=== PATIENT | female | born 1985 | race Caucasian/White ===

== ENCOUNTER 2017-04-20 15:27 | Emergency (ER) | payer OTHER ==
--- NOTE | 2017-04-20 17:14 | DIAGNOSTIC IMAGING REPORT ---
PROCEDURE: XR LUMBAR SPINE 2 OR 3 VIEWS INDICATION: TRAUMA/INJURY TECHNIQUE: Three views. COMPARISON: None. FINDINGS: Osseous structures and disc spaces are normal. No evidence of an acute process or fracture. IMPRESSION: 1. Negative lumbar spine.
--- NOTE | 2017-04-20 17:14 | DIAGNOSTIC IMAGING REPORT ---
PROCEDURE: XR KNEE 4 VIEWS - RIGHT INDICATION: TRAUMA/INJURY TECHNIQUE: Four views. COMPARISON: None. FINDINGS: Osseous structures and joint spaces are normal. IMPRESSION: 1. Normal right knee.
--- NOTE | 2017-04-20 17:20 | ED CLINICAL REPORT ---
Clinical Report - Physicians/Mid Levels [facility] [address] [place] [address] 04/20/2017 15:28 [id number] Time Seen: 16:16 Apr 20 2017. Arrived- By private vehicle. Historian- patient. HISTORY OF PRESENT ILLNESS Chief Complaint: FALL. Location of injuries- (low back/ r. knee). The injury occurred 4 days. Fell. Occurred at home. No blow to the head or neck pain. (Patient fell in the shower slipping backwards and onto her right knee4 days prior to arrival. Has been ambulatory, however worsens of her pain to her lower back as well as her right knee. Injury to her right knee. 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 Denies any LOC or neck pain.). REVIEW OF SYSTEMS No hearing loss or chest pain. All systems otherwise negative, except as recorded above. PAST HISTORY Tetanus immunization status is up-to-date. Problems: Ureterolithiasis. UTI - Urinary Tract Infection. Renal Colic. Nephrolithiasis. Endometriosis. Additional Surgeries: Cholecystectomy. . Endoscopy. Laparoscopy. Medications: Flomax Oral 0.4 mg, daily. Omeprazole Oral 40 mg, daily. zofran 4mg po --ran out . Allergies: Amoxicillin.(facial swelling, rash) Codeine. (esophageal spasms) Diphenhydramine. Morphine Sulfate. Naproxen. Penicillins. Sulfa Drugs. SOCIAL HISTORY Smoker- current status unknown. Alcohol use. History of drug use. PHYSICAL EXAM Appearance: Alert. No acute distress. ENT: No dental injury. No malocclusion. Neck: Painless ROM. Non-tender. Posterior neck: No tenderness. CVS: Heart sounds normal. Pulses normal. No JVD. Respiratory: Breath sounds normal. Abdomen: No visible injury. No mass. No abdominal tenderness, mass present or organomegaly. Back: Tenderness in the right lower and left lower lumbar area. Skin: Skin intact. Skin warm. Extremities: Normal inspection. Pelvis stable. Right knee: mild tenderness located in the patella. No swelling, laceration, puncture wound, foreign body or deformity. Neuro: Oriented X 3. LABS, X-RAYS, AND EKG LS-Spine X-rays: (IMPRESSION: 1. Negative lumbar spine. Electronically Final signed by:Yousif Vail MD 04/20/2017 5:15:17 PM). Rt Knee X-ray: (IMPRESSION: 1. Normal right knee. Electronically Final signed by:Yousif Vail MD 04/20/2017 5:14:38 PM). PROGRESS AND PROCEDURES PROCEDURES (R. knee immoblizer, ns intact post application, crutches.). Course of Care: patient with right-sided lumbar tenderness, with no signs of acute fracture. Patient is with no signs of injury to her head or neck, abdomen or chest. She is able to handle it on the right knee, there are no obvious signs of fracture. Osseous structures are intact. No signs of effusion, laceration or abrasion. Patient is urged to follow-up with orthopedics as needed. Knee immobilizer placed , as well as crutches. 04/20/2017 15:52 BP: 163/87. HR: 81. RR: 20. O2 saturation: 98%. Temp: 98.6 F. Pain level now: 6/10. Patient is stable. Symptoms better. Patient/family counseled. Disposition: Discharged. Condition: good. CLINICAL IMPRESSION Contusion to the right knee. INSTRUCTIONS Apply ice. Wear knee immobilizer. Elevate affected areas above chest level. You may walk and bear weight as tolerated. Prescription Medications: Ultram 50 mg: take 1 orally every 6 hours for 5 days. Dispense twenty (20). No refills. Substitution is permissible. OTC Medications: Acetaminophen ER 650 mg (available over the counter): take 1 orally every 6 hours for 5 days, as needed for pain. Dispense twenty (20). No refill. [facility] with: [facility], , [address] [place], [address] Follow up. Call for the next available appointment. (Electronically signed by Nellie Pham P.A.-C 04/20/2017 17:47)
--- NOTE | 2017-04-20 17:20 | ED NURSING NOTES ---
Clinical Report - Nurses [facility] [address] [place] [address] 04/20/2017 15:28 Patient: TEODORA PLAZA TRIAGE Triage time 1550. Acuity: LEVEL 4. Chief Complaint: FALL (pt states she fell 4 days ago in shower and fell with fully extended legs. c/o bilateral knee pain, right worse than left. also has low back pain from fall). DENISSE COMA SCORE: Denisse Coma Scale: 15- eyes open spontaneously (4); best verbal response- oriented x 4 (5); best motor response- obeys commands (6). --16:03 Marya Kim R.N. 15:52 04/20/17. BP: 163/87. HR: 81. RR: 20. O2 saturation: 98%. Temp: 98.6 F. Pain level now: 04/16. --16:03 Marya Kim R.N. Weight: 158.7 kg stated. Height/Length: 69 inches Per Patient. BMI: 51.7. --15:53 Marya Kim R.N. Medications Flomax Oral 0.4 mg, daily. Omeprazole Oral 40 mg, daily. zofran 4mg po --ran out . --15:55 Marya Kim R.N. Allergies Amoxicillin.(facial swelling, rash) Codeine. (esophageal spasms) Diphenhydramine. Morphine Sulfate. Naproxen. Penicillins. Sulfa Drugs. --15:55 Marya Kim R.N. History Arrived by private vehicle. Historian: patient. Accompanied by (dropped off - will take hope link home). Primary physician (kelly). Location of injuries: lower back, right knee and left knee. She has had extremity pain (both knees). She has had back pain. Limited ROM present. No loss of consciousness. PAST MEDICAL HX: Last normal menstrual period- cervical oblation- spots only. SOCIAL HX: Light tobacco smoker (cigarette)- less than 1/2 a pack per day. Occasional alcohol use. History of drug use: marijuana. --16:03 Marya Kim R.N. PROBLEMS: Ureterolithiasis. UTI - Urinary Tract Infection. Renal Colic. Nephrolithiasis. Endometriosis. --15:56 Marya Kim R.N. ADDITIONAL SURGERIES: Cholecystectomy. . Endoscopy. Laparoscopy. --15:56 Marya Kim R.N. Interventions ID band on patient. To treatment room. --16:03 Marya Kim R.N. PHYSICAL ASSESSMENT 15:50. Ambulatory to room. Patient gowned. GENERAL / NEURO / PSYCH: Alert. Oriented X 4. Appears in pain. RESPIRATORY: Respirations not labored. EXTREMITIES: Limited ROM present. Limping gait. Right knee: tenderness and swelling. Left knee: tenderness. SKIN: Skin is warm and dry. BACK: Back: tenderness. --15:59 Marya Kim R.N. NURSING PROGRESS NOTES 15:50. Cold pack applied. Patient gowned. Reassurance given. Patient identifiers checked. Call light placed in reach. Side rails up. Bed placed in lowest position. Patient ready for evaluation- chart flagged. --15:58 Marya Kim R.N. late entry -17:15 pt back from x-ray by stretcher. --21:49 Marya Kim R.N. 17:30. Immobilizer applied to right knee by plant and maintenance technician; distal pulses intact, sensation intact and motor function within normal limits (done by Roselia Butler, zyglo technician). Patient fit with new crutches (doneby Roselia Butler, senior technical project manager). --21:48 Marya Kim R.N. DISPOSITION / DISCHARGE 17:40. Condition at departure: improved and stable. No learning barriers present. Discharge instructions provided and reviewed with the patient. Reviewed crutch walking and splint care instructions (ice). Reviewed referral to an orthopedic surgeon. Patient verbalized understanding. Written instructions provided in Northern Irish. The patient was discharged home and unaccompanied at time of discharge. She left the Emergency Department on crutches and via (Virtual 3-D Display for Smartphones). --21:47 Marya Kim R.N. 17:40 04/20/17. BP: 150/86. HR: 78. RR: 18. O2 saturation: 99%. Temp: deferred. Pain level now: 03/16. --21:47 Marya Kim R.N. Locked/Released at 04/20/2017 21:50 by Marya Kim R.N.
--- NOTE | 2017-04-20 17:20 | ED ORDER SUMMARY ---
..... Patient: TEODORA PLAZA N OrderSheet [facility] VisitID: [id number] [address] [place] [address] 31y, F Registration Date/Time: 04/20/2017 ORDER SHEET Weight: 158.7 kg (stated) Allergies: Amoxicillin, Codeine, Diphenhydramine, Morphine Sulfate, Naproxen, Penicillins, Sulfa Drugs GENERAL ORDERS: Knee 4V Right Urgent (16:08 04/20/2017 EKoroleva P.A.-C) (Ack 16:12 LNations ER Tech1) (17:05 PWeiler ER Tech1) Lumbar Spine 2 or 3V Urgent (16:08 04/20/2017 EKoroleva P.A.-C) (Ack 16:12 LNations ER Tech1) (17:05 PWeiler ER Tech1) Knee Immobilizer (17:18 04/20/2017 EKoroleva P.A.-C) (17:42 DDean R.N.) Crutches (17:26 04/20/2017 EKoroleva P.A.-C) (17:42 DDean R.N.) MEDICATION ORDERS: IV FLUIDS: ORDER SHEET NOTES: [Electronically signed by Nellie PhamALizzy-C (17:47 04/20/2017)] [Electronically signed by Marya Kim R.N. (21:50 04/20/2017)] [Electronically locked/signed by Marya Kim R.N. (21:50 04/20/2017)]
--- NOTE | 2017-04-20 17:20 | ED NURSING NOTES ---
Clinical Report - Nurses [facility] [address] [place] [address] 04/20/2017 15:28 Patient: TEODORA PLAZA TRIAGE Triage time 1550. Acuity: LEVEL 4. Chief Complaint: FALL (pt states she fell 4 days ago in shower and fell with fully extended legs. c/o bilateral knee pain, right worse than left. also has low back pain from fall). DENISSE COMA SCORE: Denisse Coma Scale: 15- eyes open spontaneously (4); best verbal response- oriented x 4 (5); best motor response- obeys commands (6). --16:03 Marya Kim R.N. 15:52 04/20/17. BP: 163/87. HR: 81. RR: 20. O2 saturation: 98%. Temp: 98.6 F. Pain level now: 04/16. --16:03 Marya Kim R.N. Weight: 158.7 kg stated. Height/Length: 69 inches Per Patient. BMI: 51.7. --15:53 Marya Kim R.N. Medications Flomax Oral 0.4 mg, daily. Omeprazole Oral 40 mg, daily. zofran 4mg po --ran out . --15:55 Marya Kim R.N. Allergies Amoxicillin.(facial swelling, rash) Codeine. (esophageal spasms) Diphenhydramine. Morphine Sulfate. Naproxen. Penicillins. Sulfa Drugs. --15:55 Marya Kim R.N. History Arrived by private vehicle. Historian: patient. Accompanied by (dropped off - will take hope link home). Primary physician (kelly). Location of injuries: lower back, right knee and left knee. She has had extremity pain (both knees). She has had back pain. Limited ROM present. No loss of consciousness. PAST MEDICAL HX: Last normal menstrual period- cervical oblation- spots only. SOCIAL HX: Light tobacco smoker (cigarette)- less than 1/2 a pack per day. Occasional alcohol use. History of drug use: marijuana. --16:03 Marya Kim R.N. PROBLEMS: Ureterolithiasis. UTI - Urinary Tract Infection. Renal Colic. Nephrolithiasis. Endometriosis. --15:56 Marya Kim R.N. ADDITIONAL SURGERIES: Cholecystectomy. . Endoscopy. Laparoscopy. --15:56 Marya Kim R.N. Interventions ID band on patient. To treatment room. --16:03 Marya Kim R.N. PHYSICAL ASSESSMENT 15:50. Ambulatory to room. Patient gowned. GENERAL / NEURO / PSYCH: Alert. Oriented X 4. Appears in pain. RESPIRATORY: Respirations not labored. EXTREMITIES: Limited ROM present. Limping gait. Right knee: tenderness and swelling. Left knee: tenderness. SKIN: Skin is warm and dry. BACK: Back: tenderness. --15:59 Marya Kim R.N. NURSING PROGRESS NOTES 15:50. Cold pack applied. Patient gowned. Reassurance given. Patient identifiers checked. Call light placed in reach. Side rails up. Bed placed in lowest position. Patient ready for evaluation- chart flagged. --15:58 Marya Kim R.N. late entry -17:15 pt back from x-ray by stretcher. --21:49 Marya Kim R.N. 17:30. Immobilizer applied to right knee by instructional media services technician; distal pulses intact, sensation intact and motor function within normal limits (done by Roselia Butler, technical aid). Patient fit with new crutches (doneby Roselia Butler, invas tech). --21:48 Marya Kim R.N. DISPOSITION / DISCHARGE 17:40. Condition at departure: improved and stable. No learning barriers present. Discharge instructions provided and reviewed with the patient. Reviewed crutch walking and splint care instructions (ice). Reviewed referral to an orthopedic surgeon. Patient verbalized understanding. Written instructions provided in Yemeni. The patient was discharged home and unaccompanied at time of discharge. She left the Emergency Department on crutches and via ([employer]). --21:47 Marya Kim R.N. 17:40 04/20/17. BP: 150/86. HR: 78. RR: 18. O2 saturation: 99%. Temp: deferred. Pain level now: 03/16. --21:47 Marya Kim R.N. Locked/Released at 04/20/2017 21:50 by Marya Kim R.N.
--- NOTE | 2017-04-20 17:20 | ED CLINICAL REPORT ---
Clinical Report - Physicians/Mid Levels [facility] [address] [place] [address] 04/20/2017 15:28 [facility] PLAZA [id number] Time Seen: 16:16 Apr 20 2017. Arrived- By private vehicle. Historian- patient. HISTORY OF PRESENT ILLNESS Chief Complaint: FALL. Location of injuries- (low back/ r. knee). The injury occurred 4 days. Fell. Occurred at home. No blow to the head or neck pain. (Patient fell in the shower slipping backwards and onto her right knee4 days prior to arrival. Has been ambulatory, however worsens of her pain to her lower back as well as her right knee. Injury to her right knee. 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 Denies any LOC or neck pain.). REVIEW OF SYSTEMS No hearing loss or chest pain. All systems otherwise negative, except as recorded above. PAST HISTORY Tetanus immunization status is up-to-date. Problems: Ureterolithiasis. UTI - Urinary Tract Infection. Renal Colic. Nephrolithiasis. Endometriosis. Additional Surgeries: Cholecystectomy. . Endoscopy. Laparoscopy. Medications: Flomax Oral 0.4 mg, daily. Omeprazole Oral 40 mg, daily. zofran 4mg po --ran out . Allergies: Amoxicillin.(facial swelling, rash) Codeine. (esophageal spasms) Diphenhydramine. Morphine Sulfate. Naproxen. Penicillins. Sulfa Drugs. SOCIAL HISTORY Smoker- current status unknown. Alcohol use. History of drug use. PHYSICAL EXAM Appearance: Alert. No acute distress. ENT: No dental injury. No malocclusion. Neck: Painless ROM. Non-tender. Posterior neck: No tenderness. CVS: Heart sounds normal. Pulses normal. No JVD. Respiratory: Breath sounds normal. Abdomen: No visible injury. No mass. No abdominal tenderness, mass present or organomegaly. Back: Tenderness in the right lower and left lower lumbar area. Skin: Skin intact. Skin warm. Extremities: Normal inspection. Pelvis stable. Right knee: mild tenderness located in the patella. No swelling, laceration, puncture wound, foreign body or deformity. Neuro: Oriented X 3. LABS, X-RAYS, AND EKG LS-Spine X-rays: (IMPRESSION: 1. Negative lumbar spine. Electronically Final signed by:Yousif Vail MD 04/20/2017 5:15:17 PM). Rt Knee X-ray: (IMPRESSION: 1. Normal right knee. Electronically Final signed by:Yousif Vail MD 04/20/2017 5:14:38 PM). PROGRESS AND PROCEDURES PROCEDURES (R. knee immoblizer, ns intact post application, crutches.). Course of Care: patient with right-sided lumbar tenderness, with no signs of acute fracture. Patient is with no signs of injury to her head or neck, abdomen or chest. She is able to handle it on the right knee, there are no obvious signs of fracture. Osseous structures are intact. No signs of effusion, laceration or abrasion. Patient is urged to follow-up with orthopedics as needed. Knee immobilizer placed , as well as crutches. 04/20/2017 15:52 BP: 163/87. HR: 81. RR: 20. O2 saturation: 98%. Temp: 98.6 F. Pain level now: 6/10. Patient is stable. Symptoms better. Patient/family counseled. Disposition: Discharged. Condition: good. CLINICAL IMPRESSION Contusion to the right knee. INSTRUCTIONS Apply ice. Wear knee immobilizer. Elevate affected areas above chest level. You may walk and bear weight as tolerated. Prescription Medications: Ultram 50 mg: take 1 orally every 6 hours for 5 days. Dispense twenty (20). No refills. Substitution is permissible. OTC Medications: Acetaminophen ER 650 mg (available over the counter): take 1 orally every 6 hours for 5 days, as needed for pain. Dispense twenty (20). No refill. [facility] with: [facility], , [address] [place], [address] Follow up. Call for the next available appointment. (Electronically signed by Nellie Pham P.A.-C 04/20/2017 17:47)
--- NOTE | 2017-04-20 17:20 | ED ORDER SUMMARY ---
..... Patient: TEODORA PLAZA N OrderSheet [facility] VisitID: [id number] [address] [place] [address] 31y, F Registration Date/Time: 04/20/2017 ORDER SHEET Weight: 158.7 kg (stated) Allergies: Amoxicillin, Codeine, Diphenhydramine, Morphine Sulfate, Naproxen, Penicillins, Sulfa Drugs GENERAL ORDERS: Knee 4V Right Urgent (16:08 04/20/2017 EKoroleva P.A.-C) (Ack 16:12 LNations ER Tech1) (17:05 PWeiler ER Tech1) Lumbar Spine 2 or 3V Urgent (16:08 04/20/2017 EKoroleva P.A.-C) (Ack 16:12 LNations ER Tech1) (17:05 PWeiler ER Tech1) Knee Immobilizer (17:18 04/20/2017 EKoroleva P.A.-C) (17:42 DDean R.N.) Crutches (17:26 04/20/2017 EKoroleva P.A.-C) (17:42 DDean R.N.) MEDICATION ORDERS: IV FLUIDS: ORDER SHEET NOTES: [Electronically signed by Nellie PhamALizzy-C (17:47 04/20/2017)] [Electronically signed by aMrya Kim R.N. (21:50 04/20/2017)] [Electronically locked/signed by Marya Kim R.N. (21:50 04/20/2017)]
--- NOTE | 2017-04-20 21:50 | ED MED RECONCILIATION SUMMARY ---
Patient: TEODORA PLAZA Medication Reconciliation Report [facility] VisitID: [id number] [address] [place] [address] 31y, F Registration Date/Time: 04/20/2017 Weight: 158.7 kg Height/Length: 69 in. BMI: 51.7 ALLERGIES: Amoxicillin, Codeine, Diphenhydramine, Morphine Sulfate, Naproxen, Penicillins, Sulfa Drugs The patient's Home Medications are listed below: THE FOLLOWING MEDICATIONS NEED TO BE RECONCILED: Flomax Oral 0.4 mg, daily Omeprazole Oral 40 mg, daily zofran 4mg po --ran out The source(s) of the original Home Medication information: Not obtained. The following Medications were given to the patient in the Emergency Department: None. The following Medications were prescribed to the patient: Acetaminophen ER 650 mg (available over the counter): take 1 orally every 6 hours for 5 days, as needed for pain. Dispense twenty (20). No refill. -- Nellie Pham, P.AJana Ultram 50 mg: take 1 orally every 6 hours for 5 days. Dispense twenty (20). No refills. Substitution is permissible. -- Nellie Pham P.A.-C
--- NOTE | 2017-04-20 21:50 | ED DISCHARGE INSTRUCTIONS ---
Patient: TEODORA PLAZA General Instructions [facility] VisitID: [id number] [address] [place], [place] [id number] 31y, F Registration Date/Time: 04/20/2017 Contusion to the right knee. INSTRUCTIONS Apply ice. Wear knee immobilizer. Elevate affected areas above chest level. You may walk and bear weight as tolerated. Prescription Medications: Ultram 50 mg: take 1 orally every 6 hours for 5 days. Dispense twenty (20). No refills. Substitution is permissible. OTC Medications: Acetaminophen ER 650 mg (available over the counter): take 1 orally every 6 hours for 5 days, as needed for pain. Dispense twenty (20). No refill. [facility] with: [facility], , [address], [place], [address] Follow up. Call for the next available appointment. ADDITIONAL INFORMATION Knee Immobilizer A KNEE IMMOBILIZER is used to provide support and limit movement of the knee. This will make you more comfortable as your injury heals. Home Use: 1) Unless told otherwise, the knee brace should be worn whenever you are out of bed. You may wear it in bed while asleep for the first few nights or until the pain starts to go away. Otherwise, remove the brace at night to avoid muscle stiffness from lack of joint movement. 2) You can open the velcro brace to dress, bathe and apply ice packs as directed. Get Prompt Medical Attention if any of the following occur: -- Worsening pain in the knee -- Weakness or numbness or tingling in the foot -- Increased swelling, redness or warmth of the knee joint Acetaminophen Oral tablet What is this medicine? ACETAMINOPHEN (a set a DESTINY marcelino fen) is a pain reliever. It is used to treat mild pain and fever. How should I use this medicine? Take this medicine by mouth with a glass of water. Follow the directions on the package or prescription label. Take your medicine at regular intervals. Do not take your medicine more often than directed. Talk to your chancery clerk regarding the use of this medicine in children. While this drug may be prescribed for children as young as 6 years of age for selected conditions, precautions do apply. What side effects may I notice from receiving this medicine? Side effects that you should report to your doctor or health daytime caregiver as soon as possible: allergic reactions like skin rash, itching or hives, swelling of the face, lips, or tongue breathing problems fever or sore throat redness, blistering, peeling or loosening of the skin, including inside the mouth trouble passing urine or change in the amount of urine unusual bleeding or bruising unusually weak or tired yellowing of the eyes or skin Side effects that usually do not require medical attention (report to your doctor or health daytime caregiver if they continue or are bothersome): headache nausea, stomach upset What may interact with this medicine? alcohol imatinib isoniazid other medicines with acetaminophen What if I miss a dose? If you miss a dose, take it as soon as you can. If it is almost time for your next dose, take only that dose. Do not take double or extra doses. Where should I keep my medicine? Keep out of reach of children. Store at room temperature between 20 and 25 degrees C (68 and 77 degrees F). Protect from moisture and heat. Throw away any unused medicine after the expiration date. What should I tell my health care provider before I take this medicine? They need to know if you have any of these conditions: if you frequently drink alcohol containing drinks liver disease an unusual or allergic reaction to acetaminophen, other medicines, foods, dyes or preservatives or trying to get breast-feeding What should I watch for while using this medicine? Tell your doctor or health daytime caregiver if the pain lasts more than 10 days (5 days for children), if it gets worse, or if there is a new or different kind of pain. Also, check with your doctor if a fever lasts for more than 3 days. Do not take other medicines that contain acetaminophen with this medicine. Always read labels carefully. If you have questions, ask your doctor or pharmacist. If you take too much acetaminophen get medical help right away. Too much acetaminophen can be very dangerous and cause liver damage. Even if you do not have symptoms, it is important to get help right away. You have been given the following additional information: Knee Immobilizer Acetaminophen Oral tablet You may walk and bear weight as tolerated. (Electronically signed by Nellie Pham P.A.-C 04/20/2017 17:47)
--- NOTE | 2017-04-20 21:50 | ED DISCHARGE INSTRUCTIONS ---
Patient: TEODORA PLAZA General Instructions [facility] VisitID: [id number] [address] [place], [place] [id number] 31y, F Registration Date/Time: 04/20/2017 Contusion to the right knee. INSTRUCTIONS Apply ice. Wear knee immobilizer. Elevate affected areas above chest level. You may walk and bear weight as tolerated. Prescription Medications: Ultram 50 mg: take 1 orally every 6 hours for 5 days. Dispense twenty (20). No refills. Substitution is permissible. OTC Medications: Acetaminophen ER 650 mg (available over the counter): take 1 orally every 6 hours for 5 days, as needed for pain. Dispense twenty (20). No refill. Follow-up with: [facility], , [address], [place], [id number] Follow up. Call for the next available appointment. ADDITIONAL INFORMATION Knee Immobilizer A KNEE IMMOBILIZER is used to provide support and limit movement of the knee. This will make you more comfortable as your injury heals. Home Use: 1) Unless told otherwise, the knee brace should be worn whenever you are out of bed. You may wear it in bed while asleep for the first few nights or until the pain starts to go away. Otherwise, remove the brace at night to avoid muscle stiffness from lack of joint movement. 2) You can open the velcro brace to dress, bathe and apply ice packs as directed. Get Prompt Medical Attention if any of the following occur: -- Worsening pain in the knee -- Weakness or numbness or tingling in the foot -- Increased swelling, redness or warmth of the knee joint Acetaminophen Oral tablet What is this medicine? ACETAMINOPHEN (a set a DESTINY marcelino fen) is a pain reliever. It is used to treat mild pain and fever. How should I use this medicine? Take this medicine by mouth with a glass of water. Follow the directions on the package or prescription label. Take your medicine at regular intervals. Do not take your medicine more often than directed. Talk to your stress engineer regarding the use of this medicine in children. While this drug may be prescribed for children as young as 6 years of age for selected conditions, precautions do apply. What side effects may I notice from receiving this medicine? Side effects that you should report to your doctor or health complex care nurse as soon as possible: allergic reactions like skin rash, itching or hives, swelling of the face, lips, or tongue breathing problems fever or sore throat redness, blistering, peeling or loosening of the skin, including inside the mouth trouble passing urine or change in the amount of urine unusual bleeding or bruising unusually weak or tired yellowing of the eyes or skin Side effects that usually do not require medical attention (report to your doctor or health complex care nurse if they continue or are bothersome): headache nausea, stomach upset What may interact with this medicine? alcohol imatinib isoniazid other medicines with acetaminophen What if I miss a dose? If you miss a dose, take it as soon as you can. If it is almost time for your next dose, take only that dose. Do not take double or extra doses. Where should I keep my medicine? Keep out of reach of children. Store at room temperature between 20 and 25 degrees C (68 and 77 degrees F). Protect from moisture and heat. Throw away any unused medicine after the expiration date. What should I tell my health care provider before I take this medicine? They need to know if you have any of these conditions: if you frequently drink alcohol containing drinks liver disease an unusual or allergic reaction to acetaminophen, other medicines, foods, dyes or preservatives or trying to get breast-feeding What should I watch for while using this medicine? Tell your doctor or health complex care nurse if the pain lasts more than 10 days (5 days for children), if it gets worse, or if there is a new or different kind of pain. Also, check with your doctor if a fever lasts for more than 3 days. Do not take other medicines that contain acetaminophen with this medicine. Always read labels carefully. If you have questions, ask your doctor or pharmacist. If you take too much acetaminophen get medical help right away. Too much acetaminophen can be very dangerous and cause liver damage. Even if you do not have symptoms, it is important to get help right away. You have been given the following additional information: Knee Immobilizer Acetaminophen Oral tablet You may walk and bear weight as tolerated. (Electronically signed by Nellie Pham P.A.-C 04/20/2017 17:47)
--- NOTE | 2017-04-20 21:50 | ED MAR SUMMARY ---
..... Medication Administration Record [facility] [address] [place] [address] Patient: TEODORA PLAZA Visit ID: [id number] 31y, F Weight: 158.7 kg Height/Length: 69 in BMI: 51.7 ALLERGIES: Amoxicillin, Codeine, Diphenhydramine, Morphine Sulfate, Naproxen, Penicillins, Sulfa Drugs
--- NOTE | 2017-04-20 21:50 | ED MED RECONCILIATION SUMMARY ---
Patient: TEODORA PLAZA Medication Reconciliation Report [facility] VisitID: [id number] [address] [place] [address] 31y, F Registration Date/Time: 04/20/2017 Weight: 158.7 kg Height/Length: 69 in. BMI: 51.7 ALLERGIES: Amoxicillin, Codeine, Diphenhydramine, Morphine Sulfate, Naproxen, Penicillins, Sulfa Drugs The patient's Home Medications are listed below: THE FOLLOWING MEDICATIONS NEED TO BE RECONCILED: Flomax Oral 0.4 mg, daily Omeprazole Oral 40 mg, daily zofran 4mg po --ran out The source(s) of the original Home Medication information: Not obtained. The following Medications were given to the patient in the Emergency Department: None. The following Medications were prescribed to the patient: Acetaminophen ER 650 mg (available over the counter): take 1 orally every 6 hours for 5 days, as needed for pain. Dispense twenty (20). No refill. -- Nellie Pham, P.AJana Ultram 50 mg: take 1 orally every 6 hours for 5 days. Dispense twenty (20). No refills. Substitution is permissible. -- Nellie Pham P.A.-C
--- NOTE | 2017-04-20 21:50 | ED MAR SUMMARY ---
..... Medication Administration Record [facility] [address] [place] [address] Patient: TEODORA PLAZA Visit ID: [id number] 31y, F Weight: 158.7 kg Height/Length: 69 in BMI: 51.7 ALLERGIES: Amoxicillin, Codeine, Diphenhydramine, Morphine Sulfate, Naproxen, Penicillins, Sulfa Drugs
== END 2017-04-20 17:40 | disposition home or self-care (01) ==
LOC: ED SRH 15:27
DX: S80.01XA Contusion of right knee, initial encounter (principal); W18.2XXA Fall in (into) shower or empty bathtub, initial encounter; Y93.9 Activity, unspecified; Y92.019 Unspecified place in single-family (private) house as the place of occurrence of the external cause; Y99.9 Unspecified external cause status; Z88.6 Allergy status to analgesic agent; Z79.899 Other long term (current) drug therapy; Z88.0 Allergy status to penicillin; Z88.5 Allergy status to narcotic agent; Z88.2 Allergy status to sulfonamides

== ENCOUNTER 2017-05-14 10:03 | Outpatient (CLI) | payer OTHER ==
--- NOTE | 2017-05-14 13:02 | DIAGNOSTIC IMAGING REPORT ---
PROCEDURE: MR LOWER EXT JOINT WO CONT-RT INDICATION: INTERNAL DERANGMENT RT KNEE TECHNIQUE: PD and FAT-SAT PD sagittal and coronal images. FAT-SAT PD axial images. High-resolution T2 sagittal images of the cruciate ligaments. (Total of 6 sequences). COMPARISON: Right knee x-ray 04/20/2017. FINDINGS: Knee coil could not be used secondary to patient's body habitus resulting in some degradation of the images. Partial tear of the distal MCL. Lateral collateral and cruciate ligaments are normal. Grade 1 degeneration of the medial meniscus posterior horn but no definite evidence of a tear. Normal lateral meniscus. Quadriceps and patellar tendons are normal. Mild lateral patellar subluxation and chondromalacia. Large suprapatellar effusion. 8 mm distal femoral metaphysis cyst. 5 cm long popliteal cyst. Varicose vein is seen medially. IMPRESSION: 1. Partial MCL tear distally 2. 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 Large suprapatellar effusion 6. Popliteal cyst
== END 2017-05-14 23:00 | disposition home or self-care (01) ==
LOC: MRI SRH 10:03
DX: S83.411A Sprain of medial collateral ligament of right knee, initial encounter (principal); M22.41 Chondromalacia patellae, right knee; M25.461 Effusion, right knee; M71.21 Synovial cyst of popliteal space [Baker], right knee